=== PATIENT | female | born 1950 | race Caucasian/White ===

== ENCOUNTER 2020-12-14 12:08 | Observation (INO) ==
[~2020-12-14 12:08] MED LIST: Buffered Lidocaine 1% SYRIN 1 ml INTRADERM ONE; Lactated Ringers 1000 ml BAG 1,000 ML IV SCH; Vancomycin 1,000 MG VIAL ONE
[2020-12-14] MEDS ORDERED: ceFAZolin 2 GM/50 ML DUPLEX BAG ONE (12:44)
[2020-12-14] MEDS ORDERED: TRANEXAMIC ACID IV ONE (12:44)
[2020-12-14] MEDS ORDERED: Buffered Lidocaine 1% SYRIN 1 ml INTRADERM ONE (12:44)
[2020-12-14] MEDS ORDERED: NACL IV ONE (12:44)
[2020-12-14] MEDS ORDERED: Bupivacaine 0.5% SDV PF 30ML VIAL ONE ×2 (13:17→15:58)
[2020-12-14] MEDS ORDERED: Dexamethasone IV 4 MG/ML VIAL 1 ml VIAL ONE (13:17)
[2020-12-14] MEDS ORDERED: Midazolam 2 mg/2 ml VIAL 1 mg/ml 2 ml VIAL (2 mg) ONE ×2 (13:18→14:56)
[2020-12-14] MEDS ORDERED: Lidocaine 1% MPF 5 ML VIAL ONE (14:23)
[2020-12-14] MEDS ORDERED: fentaNYL 100 mcg/2 ml 50 MCG/ML VIAL ONE (14:56)
[2020-12-14] MEDS ORDERED: Magnesium Hydroxide LIQ 30 ML UDC PO PRN (15:12)
[2020-12-14] MEDS ORDERED: diPHENhydraMINE 25 mg TAB PO PRN (15:12)
[2020-12-14] MEDS ORDERED: Lactulose 30 ml UDC PO PRN (15:12)
[2020-12-14] MEDS ORDERED: Morphine 2 MG/ML SYRINGE IV PRN (15:12)
[2020-12-14] MEDS ORDERED: diPHENhydraMINE IV 50 MG/ML 1 ml VIAL (BENADRYL) IV PRN ×2 (15:12→18:02)
[2020-12-14] MEDS ORDERED: Ondansetron 4 mg VIAL 2 MG/ML 2 ml VIAL IV PRN (15:12)
[2020-12-14] MEDS ORDERED: Ondansetron ODT 4 mg TAB 4 MG TAB PO PRN (15:12)
[2020-12-14] MEDS ORDERED: Vancomycin 1,000 MG VIAL ONE (16:37)
[2020-12-14] MEDS ORDERED: Propofol 10 MG/ML 20 ML BTL ONE (17:34)
[2020-12-14] MEDS ORDERED: Naloxone 0.4 mg VIAL 0.4 mg/ml 1 ml VIAL IV PRN (18:02)
[2020-12-14] MEDS ORDERED: fentaNYL 100 mcg/2 ml 50 MCG/ML VIAL IV PRN (18:02)
[2020-12-14] MEDS ORDERED: HYDROmorphone 1 MG/1 ML SYRINGE ONE (18:33)
[2020-12-14] MEDS ORDERED: Lidocaine 2% PF 5 ML VIAL ONE (18:42)
[2020-12-14] MEDS: Lactated Ringers 1000 ml BAG 1,000 ML IV SCH (20:03)
[2020-12-14] MEDS: Magnesium Hydroxide LIQ 30 ML UDC PO SCH (21:29)
[2020-12-14] MEDS: ceFAZolin 1 GM ADVAN 1 GM in NS 0.9% 50 ML 50 ML IVPB SCH (23:11)
[2020-12-15] MEDS: Lactated Ringers 1000 ml BAG 1,000 ML IV SCH (06:15)
[2020-12-15 06:23] LABS: Hematocrit 37 % (35-47); Hemoglobin 12.5 g/dL (12.0-16.0); Mean Platelet Volume 7.9 fL (7.4-10.4); Platelet Count 286 10^3/uL (150-450)
[2020-12-15 06:42] LABS: BUN/Creatinine Ratio 20.8 (8-20); Calcium 8.7 mg/dL (8.6-10.3); EGFR African American 96.9 (>60); EGFR Non-African American 80.1 (>60); Potassium 4.5 mmol/L (3.5-5.0)
[2020-12-15] MEDS: ceFAZolin 1 GM ADVAN 1 GM in NS 0.9% 50 ML 50 ML IVPB SCH (08:04)
[2020-12-15] MEDS: Magnesium Hydroxide LIQ 30 ML UDC PO SCH (08:14)
[2020-12-15] MEDS ORDERED: Vitamin THERAPEUTIC TAB PO SCH (09:00)
[2020-12-15 11:27] VITALS: BP 116/52
== END 2020-12-15 16:15 | disposition home or self-care (01) ==
LOC: SSU 12:08 → OR 12:08
PROVIDERS: ADMIT Orthopaedic Surgery; ATTEND Orthopaedic Surgery